=== PATIENT | female | born 1980 | race Caucasian/White ===

== ENCOUNTER 2017-08-04 19:28 | Emergency (ER) | payer OTHER ==
[~2017-08-04] VITALS: Ht 167.6 cm; Wt 59.9 kg
[~2017-08-04 19:28] MED LIST: ACET-2863 PO; CEPH250C16 PO; IBUP-974 PO
[2017-08-04 19:39] VITALS: BP 140/98
--- NOTE | 2017-08-04 19:55 | NUR ---
37 Y/O F W/C/O L PELVIC PAIN X MTHS GETTING WORSE LATELY. PT STATES HAS A HX OF OVARIAN CYST, ENDOMETRIOSIS, AND PARTIAL HYSTERECTOMY DONE LAST OCTOBER 2016 HERE. PT DENIES ANY PAIN WITH URINATION, OR VAGINAL DISCHARGE. NO OTHER S/S OF DISTRESS NOTED. PA MADE AWARE.
--- NOTE | 2017-08-04 20:15 | NUR ---
PA AT BEDSIDE EVALUATING PT.
[2017-08-04] MEDS ORDERED: ONDANSETRON 4 MG ODT PO ONE (20:30)
[2017-08-04] MEDS ORDERED: HYDROcodone/APAP 7.5/325 MG 1 TAB PO ONE (20:30)
--- NOTE | 2017-08-04 20:33 | NUR ---
PT TAKEN FOR CT SCAN VIA WHEEL CHAIR.
[2017-08-04 21:16] LABS: BASOPHILS # (AUTO) 0.3 K/uL (0.00-0.22); EOSINOPHILS # (AUTO) 0.3 K/uL (0-0.4); LYMPHOCYTES # (AUTO) 2.3 K/uL (2.5-16.5); MEAN CORPUSCULAR HEMOGLOBIN 30 pg (27-31); MEAN CORPUSCULAR HGB CONC 33 g/dL (33-37); MEAN CORPUSCULAR VOLUME 91 fL (80-94); MONOCYTES # (AUTO) 0.4 K/uL (0.8-1.0); NEUTROPHILS # (AUTO) 5.4 K/uL (1.8-7.7); PLATELET COUNT (AUTO) 186 K/uL (140-450); RED BLOOD CELL COUNT(AUTO) 4.64 MIL/uL (4.20-5.40); RED CELL DISTRIBUTION WIDTH 12.1 % (11.6-13.7); WHITE BLOOD COUNT (AUTO) 8.7 K/uL (4.8-10.8)
[2017-08-04 21:23] LABS: CARBON DIOXIDE 28.6 mmol/L (21-32); CREATININE 0.6 mg/dL (0.6-1.3); POTASSIUM 3.6 mmol/L (3.5-5.1)
[2017-08-04 21:28] LABS: TOTAL BILIRUBIN 0.2 mg/dL (0.0-1.0)
[2017-08-04 22:13] VITALS: BP 110/72
--- NOTE | 2017-08-04 22:13 | NUR ---
Patient discharged with v/s stable. Written and verbal after care instructions given and explained. Patient alert, oriented and verbalized understanding of instructions. Ambulatory with steady gait. All questions addressed prior to discharge. ID band removed. Patient advised to follow up with PMD IN 2-3 DAYS OR RETURN TO ER IF CONDITION WORSENS. Rx of NORCO, AND IBUPROFEN given. Patient educated on indication of medication including possible reaction and side effects. Opportunity to ask questions provided and answered.
== END 2017-08-04 22:13 | disposition home or self-care (01) ==
LOC: MED 19:28
DX: R10.32 Left lower quadrant pain (principal); R03.0 Elevated blood-pressure reading, without diagnosis of hypertension; Z79.899 Other long term (current) drug therapy; Z90.710 Acquired absence of both cervix and uterus
CPT/HCPCS: 36415; 74176; 80053; 81002; 81025; 83690; 85025; 99285; S0119

== ENCOUNTER 2017-08-07 11:22 | Emergency (ER) | payer OTHER ==
[~2017-08-07] VITALS: Ht 167.6 cm; Wt 56.3 kg
[2017-08-07 11:24] VITALS: BP 111/78
--- NOTE | 2017-08-07 11:34 | NUR ---
Patient to bed 02.
--- NOTE | 2017-08-07 11:40 | NUR ---
Received ALOX4 with c/o back pain
--- NOTE | 2017-08-07 12:00 | NUR ---
medications given tolerated well no adverse reaction SEE MAR.
[2017-08-07] MEDS ORDERED: KETOROLAC 60 MG/2 ML VIAL IM ONE (12:05)
[2017-08-07] MEDS ORDERED: METHOCARBAMOL 500 MG TAB PO SCH (12:05)
[2017-08-07 13:05] LABS: APPEARANCE,URINE CLEAR (CLEAR); BILIRUBIN,URINE NEGATIVE (NEGATIVE); BLOOD, URINE NEGATIVE (NEGATIVE); COLOR,URINE YELLOW (YELLOW); LEUKOCYTE ESTERASE ,URINE NEGATIVE (NEGATIVE); NITRITE, URINE NEGATIVE (NEGATIVE); PH,URINE 5.5 (5.0-9.0); UGLUCOSE NEGATIVE (NEGATIVE)
[2017-08-07 13:31] VITALS: BP 125/69
--- NOTE | 2017-08-07 13:34 | NUR ---
Patient discharged with v/s stable. Written and verbal after care instructions given and explained. Patient alert, oriented and verbalized understanding of instructions. Ambulatory with steady gait. All questions addressed prior to discharge. ID band removed. Patient advised to follow up with PMD. Rx of robaxin given. Patient educated on indication of medication including possible reaction and side effects. Opportunity to ask questions provided and answered.
== END 2017-08-07 13:31 | disposition home or self-care (01) ==
LOC: MED 11:22
DX: M54.9 Dorsalgia, unspecified (principal); F17.210 Nicotine dependence, cigarettes, uncomplicated; Z90.710 Acquired absence of both cervix and uterus; Z79.899 Other long term (current) drug therapy
CPT/HCPCS: 81003; 81025; 96372; 99283; J1885

== ENCOUNTER 2018-12-09 17:15 | Emergency (ER) | payer OTHER ==
[~2018-12-09] VITALS: Ht 167.6 cm; Wt 61.7 kg
[~2018-12-09 17:15] MED LIST changes: -ACET-2863 PO; +HYDR-5123 PO
[2018-12-09 17:18] VITALS: BP 126/81
--- NOTE | 2018-12-09 17:31 | NUR ---
PT AMB TO BED 3
--- NOTE | 2018-12-09 17:34 | NUR ---
C/O LLQ ABDOMINAL PAIN 03/02 SHARP, PULLING, BURNING X 1 WEEK. PT STATES SHE HAS A HX OF EMDOMETRIOSIS & HYSTERECTOMY AND WAS TOLD IN OCTOBER SHE HAS AN OVARIAN CYST ON THE L OVARY. DENIED N/V/D/FEVER. LBM 12/08/18, REGULAR, ABDOMEN SOFT/FLAT/TENDER TO LLQ. SKIN IS PINK/WARM/DRY; AAOX4 WITH EVEN AND STEADY GAIT; LUNGS CLEAR BL; HR EVEN AND REGULAR; VSS; PATIENT POSITIONED FOR COMFORT; HOB ELEVATED; BEDRAILS UP X1; BED DOWN. ER MD MADE AWARE OF PT STATUS.
--- NOTE | 2018-12-09 17:57 | NUR ---
ERMD AT BEDSIDE
[2018-12-09 18:30] LABS: BASOPHILS # (AUTO) 0.1 K/uL (0.00-0.22); BASOPHILS % (AUTO) 1.2 % (0.0-2.0); EOSINOPHILS # (AUTO) 0.2 K/uL (0-0.4); EOSINOPHILS % (AUTO) 2.9 % (0.0-4.0); HEMATOCRIT 34.9 % (36-48); HEMOGLOBIN 11.7 g/dL (12.0-16.0); LYMPHOCYTES # (AUTO) 1.5 K/uL (2.5-16.5); LYMPHOCYTES % (AUTO) 22.9 % (20.5-51.1); MEAN CORPUSCULAR HEMOGLOBIN 31 pg (27-31); MEAN CORPUSCULAR HGB CONC 34 g/dL (33-37); MEAN CORPUSCULAR VOLUME 91.8 fL (80-94); MONOCYTES # (AUTO) 0.4 K/uL (0.8-1.0); MONOCYTES % (AUTO) 6.7 % (1.7-9.3); NEUTROPHILS # (AUTO) 4.2 K/uL (1.8-7.7); NEUTROPHILS % (AUTO) 66.3 % (42.2-75.2); PLATELET COUNT (AUTO) 173 K/uL (140-450); RED CELL DISTRIBUTION WIDTH 13.4 % (11.6-13.7); WHITE BLOOD COUNT (AUTO) 6.4 K/uL (4.8-10.8)
[2018-12-09 18:42] LABS: APPEARANCE,URINE CLEAR (CLEAR); BILIRUBIN,URINE NEGATIVE (NEGATIVE); BLOOD, URINE NEGATIVE (NEGATIVE); COLOR,URINE YELLOW (YELLOW); LEUKOCYTE ESTERASE ,URINE NEGATIVE (NEGATIVE); NITRITE, URINE NEGATIVE (NEGATIVE); UGLUCOSE NEGATIVE (NEGATIVE)
[2018-12-09 19:02] LABS: ANION GAP 9.6 (8-16); CARBON DIOXIDE 29.4 mmol/L (21-32); CREATININE 0.6 mg/dL (0.6-1.3)
[2018-12-09 19:08] LABS: ALBUMIN 3.6 g/dL (3.4-5.0); TOTAL BILIRUBIN 0.1 mg/dL (0.0-1.0)
[2018-12-09 20:13] VITALS: BP 126/81
== END 2018-12-09 20:13 | disposition home or self-care (01) ==
LOC: MED 17:15
DX: R10.32 Left lower quadrant pain (principal); Z79.2 Long term (current) use of antibiotics; Z79.891 Long term (current) use of opiate analgesic; Z79.1 Long term (current) use of non-steroidal anti-inflammatories (NSAID); Z90.710 Acquired absence of both cervix and uterus
CPT/HCPCS: 36415; 76856; 80053; 81003; 83690; 84703; 85025; 99284; Q0092